=== PATIENT | male | born 1980 ===

== ENCOUNTER 2021-12-12 14:52 | Emergency (ER) | payer BC ==
[2021-12-12] MEDS ORDERED: TETANUS,DIPHTHERIA TOXOID ADULT 0.5 ML INJ IM STA (16:47)
[2021-12-12] MEDS ORDERED: oxyCODONE /ACETAMINOPHEN 5-325MG TAB PO ONE (17:04)
--- NOTE | 2021-12-12 17:34 | XRay Report ---
Right foot 3 views INDICATION: Right foot pain following injury IMPRESSION: There is a mildly displaced fracture involving the distal aspect of the distal phalanx of the great toe. Signer Name: Burton Lo MD Signed: 12/12/2021 5:29 PM Workstation Name: [id number]
--- NOTE | 2021-12-12 17:35 | XRay Report ---
Left forearm 2 views INDICATION: Left forearm pain IMPRESSION: There is a minimally displaced fracture involving the proximal diaphysis of the left radi us. There is mild overlying soft tissue laceration. Signer Name: Burton Lo MD Signed: 12/12/2021 5:30 PM Workstation Name: [id number]
[2021-12-12] MEDS ORDERED: TETANUS,DIPHTHERIA TOXOID ADULT 0.5 ML INJ IM ONE (18:12)
[2021-12-12] MEDS ORDERED: TETANUS,DIPH,PERTUSS(ACELL) VACCINE 0.5 ML SYRINGE IM ONE (18:14)
[2021-12-12] MEDS ORDERED: ceFAZolin 1 GM VIAL IM ONE (18:49)
--- NOTE | 2021-12-12 19:05 | Emergency Department Report ---
ED General Adult HPI - General Chief complaint: Extremity Injury, Upper Stated complaint: CUT ARM/RT GREAT TOE INJURY Time Seen by Provider: 12/12/21 15:56 Source: patient Mode of arrival: Ambulatory Limitations: No Limitations - History of Present Illness Initial comments: 41-year-old male presents emerged department with who is translati ng reports of him having an injury to his arm and foot. While he was trying to cut a piece of [place] some kind of way the optometric technologist was lost causing the ground to slam down on his forearm and fell from his forearm down to his right foot. After the contact with the fall on the day noticed bleeding from the arm and swelling in conjunction with bleeding, and pain to the right great toe. Pain is dull and throbbing worse with palpation and range of motion. Reports no fever, chills, sweats Severity scale (0 -10): 10 - Related Data Home Medications Medication Instructions Recorded Confirmed Last Taken No Known Home Medications [No 12/12/21 12/12/21 Unknown Reported Home Medications] Allergies Allergy/AdvReac Type Severity Reaction Status Date / Time No Known Allergies Allergy Verified 12/12/21 15:49 ED Review of Systems ROS: Stated complaint: CUT ARM/RT GREAT TOE INJURY Other details as noted in HPI Comment: All other systems reviewed and negative ED Past Medical Hx - Social History Smoking Status: Never Smoker Substance Use Type: None - Medications Home Medications: Home Medications Medication Instructions Recorded Confirmed Last Taken Type No Known Home Medications [No 12/12/21 12/12/21 Unknown History Reported Home Medications] ED Physical Exam - General Limitations: No Limitations General appearance: alert, in no apparent distress - Head Head exam: Present: atraumatic, normocephalic - Eye Eye exam: Present: normal appearance - ENT ENT exam: Present: mucous membranes moist - Neck Neck exam: Present: normal inspection - Respiratory Respiratory exam: Present: normal lung sounds bilaterally. Absent: respiratory distress - Cardiovascular Cardiovascular Exam: Present: regular rate, normal rhythm. Absent: systolic murmur, diastolic murmur, rubs, gallop - GI/Abdominal GI/Abdominal exam: Present: soft, normal bowel sounds - Rectal Rectal exam: Present: deferred - Extremities Exam Extremities exam: Present: normal inspection - Expanded Upper Extremity Exam Left Shoulder Exam: Present: normal inspection, full ROM Elbow exam: Present: normal inspection, full ROM Forearm Wrist exam: Present: tenderness, swelling, laceration Vascular: Present: normal capillary refill. Absent: vascular compromise - Back Exam Back exam: Present: normal inspection. Absent: CVA tenderness (R), CVA tenderness (L), muscle spasm - Neurological Exam Neurological exam: Present: alert, oriented X3, CN II-XII intact, normal gait - Psychiatric Psychiatric exam: Present: normal affect, normal mood - Skin Skin exam: Present: warm, dry, intact, normal color. Absent: rash ED Course Vital Signs 12/12/21 12/12/21 15:58 18:14 Temperature 97.9 F 98.7 F Pulse Rate 75 73 Respiratory 18 20 Rate Blood Pressure 120/79 Blood Pressure 119/73 [Right] O2 Sat by Pulse 97 100 Oximetry - Consultations Consultation #1: 12/12/21 20:13 Case discussed with attending Dr. Armstrong. Patient will be transferred to [facility] trauma accepting physician is Dr. Yañez ED Medical Decision Making - Radiology Data Radiology results: report reviewed [address] [address] XRay Report Signed Patient: SHRUTHI MARTINEZ MR#: [id number] 37 : 1980 Acct:[id number] Age/Sex: 41 / M ADM Date: 12/12/21 Loc: ED Attending Dr: Ordering Physician: YASEMIN QUESADA Date of Service: 12/12/21 Procedure(s): XR forearm LT Accession Number(s): [id number] cc: YASEMIN QUESADA Fluoro Time In Minutes: Left forearm 2 views INDICATION: Left forearm pain IMPRESSION: There is a minimally displaced fracture involving the proximal diaphysis of the left radius. There is mild overlying soft tissue laceration. Signer Name: Burton Lo MD Signed: 12/12/2021 5:30 PM Workstation Name: [id number] Transcribed By: BC Dictated By: Burotn Lo MD Electronically Authenticated By: Burton Lo MD Signed Date/Time: 12/12/211729 DD/ 28 TD/TT: [address] [address] XRay Report Signed Patient: SHRUTHI MARTINEZ MR#: [id number] 37 : 1980 Acct:[id number] Age/Sex: 41 / M ADM Date: 12/12/21 Loc: ED Attending Dr: Ordering Physician: YASEMIN QUESADA Date of Service: 12/12/21 Procedure(s): XR foot 3+V RT Accession Number(s): [id number] cc: YASEMIN QUESADA Fluoro Time In Minutes: Right foot 3 views INDICATION: Right foot pain following injury IMPRESSION: There is a mildly displaced fracture involving the distal aspect of the distal phalanx of the great toe. Signer Name: Burton Lo MD Signed: 12/12/2021 5:29 PM Workstation Name: [id number] Transcribed By: BC Dictated By: Burton Lo MD Electronically Authenticated By: Burton Lo MD Signed Date/Time: 12/12/211728 DD/ 28 TD/TT: - Medical Decision Making 41-year-old male status post crush injury to the left forearm resulting in a open radial fracture midshaft with the pain continued bruising with blood. Also tuft fracture to the right toe with a subungual hematoma Sen no nail avulsion. Plan is to splint wound and transfer to another facility as we do not have orthopedics at this facility this evening Case was discussed with my attending Dr. Armstrong who had [id number] with the patient and discussed the plan with the family Critical care attestation.: If time is entered above; I have spent that time in minutes in the direct care of this critically ill patient, excluding procedure time. ED Disposition Clinical Impression: Fracture of radial shaft, left, open, Toe fracture, right Disposition: 02 [facility]ORT [facility] Is pt being admited?: No Does the pt Need Aspirin: No Condition: Stable
[2021-12-12] MEDS ORDERED: MORPHINE 4 MG/1 ML INJ IV STA (20:04)
[2021-12-12] MEDS ORDERED: ONDANSETRON 4 MG/2 ML INJ IV STA (20:04)
[2021-12-12 20:05] VITALS: BP 135/87
[2021-12-12] MEDS ORDERED: ONDANSETRON 4 MG/2 ML INJ IV ONE (20:06)
[2021-12-12] MEDS ORDERED: MORPHINE 4 MG/1 ML INJ IV ONE (20:06)
[2021-12-12 20:45] LABS: BUN/Creatinine Ratio 21; Blood Urea Nitrogen 17 mg/dL (9-20); Calcium 9.2 mg/dL (8.4-10.2); Hemolysis Index 10
[2021-12-12 20:58] LABS: Hematocrit 41.3 % (35.5-45.6); Hemoglobin 13.6 gm/dl (11.8-15.2); Mean Corpuscular HGB Conc 33 % (32-34); Mean Corpuscular Volume 102 fl (84-94); Platelet Count 197 K/mm3 (140-440); Red Blood Count 4.03 M/mm3 (3.65-5.03); Red Cell Distribution Width 13.5 % (13.2-15.2)
[2021-12-12 20:59] LABS: INR 0.88 (0.87-1.13)
== END 2021-12-13 00:41 | disposition short-term general hospital (02) ==
LOC: ED 14:52
DX: S52.302A Unspecified fracture of shaft of left radius, initial encounter for closed fracture (principal); S92.911A Unspecified fracture of right toe(s), initial encounter for closed fracture; X58.XXXA Exposure to other specified factors, initial encounter; Y93.89 Activity, other specified; Y92.89 Other specified places as the place of occurrence of the external cause; Y99.8 Other external cause status
CPT/HCPCS: 36415; 73090; 73630; 80048; 85025; 85610; 90471; 90714; 90715; 96372; 96374; 96375; 99285; J0690; J2270; J2405